=== PATIENT | male | born 1980 | race Hispanic/Latino ===

== ENCOUNTER 2017-09-25 08:41 | Emergency (ER) | payer BC ==
[2017-09-25 09:03] VITALS: BP 120/78; PULSE 81; TEMP 98; O2SAT 100
[2017-09-25 09:04] VITALS: BMI 22.3
--- NOTE | 2017-09-25 10:08 | ED PDOC ---
HPI: Trauma/Fall - HPI Time Seen by Provider: 09/25/17 09:24 Chief Complaint (Nursing): Trauma Chief Complaint (Provider): Fall History Per: Patient Onset/Duration Of Symptoms: Days (x1) Injury Occurred (Timing): Hours Ago: (11) Location Of Injury: Left: Leg (segura), Anterior: Leg Severity: Mild Pain Scale Rating Of: 4 Associated Symptoms: denies: Dizziness, LOC Additional Complaint(s): Timothy Anders is a 37 year old male, with a past medical history of asthma, who presents to the emergency department for a left leg injury associated with right upper shoulder pain s/p fall onset yesterday at 11pm. Patient states he slipped on water and fell down the stairs. He landed on his back and reports taking 3 pills of Advil this morning with no improvement of pain. He denies any numbness, tingling, head or neck injury. No further medical complaints. No dizziness. Ambulated with the pain. PMD: None provided. Past Medical History Reviewed: Historical Data, Nursing Documentation, Vital Signs Vital Signs: Last Vital Signs Temp 98 F 09/25/17 09:02 Pulse 81 09/25/17 09:02 Resp BP 120/78 09/25/17 09:02 Pulse Ox 100 09/25/17 10:22 - Medical History PMH: Asthma - Family History Family History: States: Unknown Family Hx - Social History Alcohol: None Drugs: Denies - Allergies Allergies/Adverse Reactions: Allergies Allergy/AdvReac Type Severity Reaction Status Date / Time No Known Allergies Allergy Verified 09/25/17 09:33 Review of Systems ROS Statement: Except As Marked, All Systems Reviewed And Found Negative Constitutional: Negative for: Other (no head injury) Musculoskeletal: Positive for: Shoulder Pain (right upper), Leg Pain (left segura laceration). Negative for: Neck Pain Neurological: Negative for: Numbness (or tingling) Physical Exam - Reviewed Nursing Documentation Reviewed: Yes Vital Signs Reviewed: Yes - Physical Exam Appears: Positive for: Non-toxic, No Acute Distress Head Exam: Positive for: ATRAUMATIC, NORMAL INSPECTION, NORMOCEPHALIC Skin: Positive for: Normal Color, Warm, Dry Eye Exam: Positive for: EOMI, Normal appearance, PERRL Neck: Positive for: Normal, Painless ROM, Supple Cardiovascular/Chest: Positive for: Regular Rate, Rhythm. Negative for: Murmur Respiratory: Positive for: Normal Breath Sounds. Negative for: Respiratory Distress Pulses-Dorsalis Pedis (L): 2+ Gastrointestinal/Abdominal: Positive for: Normal Exam, Bowel Sounds, Soft. Negative for: Tenderness, Guarding, Rebound Back: Negative for: Normal Inspection (right upper lateral back tenderness mild. Full ROM, no ecchymosis, no hematoma.), L CVA Tenderness, R CVA Tenderness Extremity: Positive for: Normal ROM (Full ROM), Tenderness, Other (Laceration on left anterior chin. Avulsed and jagged. Approximately 2.5 cm tender. Mild tender.). Negative for: Pedal Edema, Calf Tenderness Neurologic/Psych: Positive for: Alert, Oriented. Negative for: Motor/Sensory Deficits - ECG O2 Sat by Pulse Oximetry: 100 (RA) Pulse Ox Interpretation: Normal - Radiology X-Ray: Interpreted by Me, Viewed By Me X-Ray Interpretation: No Acute Disease - Progress ED Course And Treament: 1131: Stable. AAOx3. Pain free. Tolerated po. Laceration repaired. Come back in 7 days for suture removal. Medical Decision Making Medical Decision Making: Initial Impression: left leg injury s/p fall Initial Plan: --Adacel 0.5 ml IM --Tibia Fibula Left Fall Protocol [RAD] --reevaluation Scribe Attestation: Documented by Jose A Smith, acting as a scribe for Cristian Yip MD Provider Scribe Attestation: All medical record entries made by the Scribe were at my direction and personally dictated by me. I have reviewed the chart and agree that the record accurately reflects my personal performance of the history, physical exam, medical decision making, and the department course for this patient. I have also personally directed, reviewed, and agree with the discharge instructions and disposition. Disposition - Clinical Impression Clinical Impression: Leg injury, Laceration - Patient ED Disposition Is Patient to be Admitted: No - Disposition Referrals: [facility] [Outside] - 09/29/17 Disposition: Routine/Home Disposition Time: 11:36 Condition: STABLE Additional Instructions: Return if not better in 3 days. Come back or see your doctor in 7 days for suture removal. Instructions: Laceration (ED) Forms: [facility] (Swiss), [facility] ED School/Work Excuse
[2017-09-25] MEDS ORDERED: Povidone Iodine Topical 10% Sol ONE (10:45)
[2017-09-25] MEDS ORDERED: Lidocaine 1% Inj (20ml) IJ ONE (10:57)
[2017-09-25] MEDS ORDERED: Epinephrine /Lidocaine HCL 1:100,000/2% 30 ml INJ ONE ×2 (11:03→11:26)
[2017-09-25] MEDS ORDERED: Lidocaine 2% w Epi 1:100,000 Inj IJ ONE (11:05)
== END 2017-09-25 11:40 | disposition home or self-care (01) ==
LOC: H.ER 08:41
DX: S81.812A Laceration without foreign body, left lower leg, initial encounter (principal); W19.XXXA Unspecified fall, initial encounter; Y92.89 Other specified places as the place of occurrence of the external cause; J45.909 Unspecified asthma, uncomplicated

== ENCOUNTER 2017-10-10 14:21 | Emergency (ER) | payer OTHER, BC ==
[2017-10-10 14:21] VITALS: BMI 22.3
[2017-10-10 14:27] VITALS: BP 140/83; PULSE 92; RESP 18; TEMP 98.3; O2SAT 99
--- NOTE | 2017-10-10 15:07 | ED PDOC ---
HPI: Wound Care - HPI Time Seen by Provider: 10/10/17 14:39 Chief Complaint (Nursing): Suture/Staple Removal Chief Complaint (Provider): Suture removal History Per: Patient Exam Limitations: no limitations Onset/Duration Of Symptoms: Days (x10) Location Of Injury: Left: Leg (segura) Severity: None Pain Scale Rating Of: 0 Additional Complaint(s): Timothy Anders is a 37 year old male, with no past medical history, who presents to the emergency department for suture removal on left segura s/p fall injury onset 10 days ago. Patient had sutures done in the ED after he tripped and fell down the stairs 10 days ago. Some mild redness noted around the wound. Patient denies any fever, or chills. No further medical complaints. PMD: None provided. Past Medical History Reviewed: Historical Data, Nursing Documentation, Vital Signs Vital Signs: Last Vital Signs Temp 98.3 F 10/10/17 14:26 Pulse 92 H 10/10/17 14:26 Resp 18 10/10/17 14:26 BP 140/83 10/10/17 14:26 Pulse Ox 99 10/10/17 14:26 - Medical History PMH: Asthma - Family History Family History: States: Unknown Family Hx - Social History Current smoker - smoking cessation education provided: Yes Alcohol: Social Drugs: Denies - Home Medications Home Medications: Ambulatory Orders Medication Instructions Recorded Cephalexin [cephalexin] 500 mg PO BID #14 cap 10/10/17 - Allergies Allergies/Adverse Reactions: Allergies Allergy/AdvReac Type Severity Reaction Status Date / Time No Known Allergies Allergy Verified 09/25/17 09:33 Review of Systems ROS Statement: Except As Marked, All Systems Reviewed And Found Negative Constitutional: Negative for: Fever, Chills Musculoskeletal: Positive for: Leg Pain (left segura wound sutured with mild redness noted) Physical Exam - Reviewed Nursing Documentation Reviewed: Yes Vital Signs Reviewed: Yes - Physical Exam Appears: Positive for: Well, Non-toxic, No Acute Distress Head Exam: Positive for: ATRAUMATIC, NORMAL INSPECTION, NORMOCEPHALIC Skin: Positive for: Normal Color, Warm, Dry Eye Exam: Positive for: EOMI, Normal appearance, PERRL Neck: Positive for: Normal, Painless ROM, Supple Respiratory: Negative for: Respiratory Distress Extremity: Positive for: Normal ROM, Other (mid tibial shaft scabbed over site. 3 sutures noted. 2cm surrounding erythema. ) Neurologic/Psych: Positive for: Alert, Oriented - ECG O2 Sat by Pulse Oximetry: 99 (RA) Pulse Ox Interpretation: Normal Medical Decision Making Medical Decision Making: Initial Impression: Suture removal Initial Plan: - 3 sutures removed. Mild purulent drainage noted when sutures removed. ~ Scribe Attestation: Documented by Jose A Smith, acting as a scribe for Herminia Owen PA-C. Provider Scribe Attestation: All medical record entries made by the Scribe were at my direction and personally dictated by me. I have reviewed the chart and agree that the record accurately reflects my personal performance of the history, physical exam, medical decision making, and the department course for this patient. I have also personally directed, reviewed, and agree with the discharge instructions and disposition. Disposition - Clinical Impression Clinical Impression: Removal of suture, Visit for wound check - Patient ED Disposition Is Patient to be Admitted: No - Disposition Disposition: Routine/Home Disposition Time: 15:16 Condition: STABLE Prescriptions: Cephalexin [cephalexin] 500 mg PO BID #14 cap Instructions: Stitches Removal (ED) Forms: [employer] (Namibian)
== END 2017-10-10 15:03 | disposition home or self-care (01) ==
LOC: H.ER 14:21
DX: Z48.02 Encounter for removal of sutures (principal)

== ENCOUNTER 2017-10-24 18:48 | Emergency (ER) | payer OTHER, BC ==
[2017-10-24 18:48] VITALS: BMI 22.3
[2017-10-24 18:55] VITALS: BP 143/90; PULSE 82; RESP 18; TEMP 97.6; O2SAT 99
--- NOTE | 2017-10-24 19:22 | ED PDOC ---
Lower Extremity Pain/Injury Time Seen by Provider: 10/24/17 18:57 Chief Complaint (Nursing): Lower Extremity Problem/Injury Chief Complaint (Provider): open wound of leg History Per: Patient History/Exam Limitations: no limitations Current Symptoms Are (Timing): Still Present Additional Complaint(s): Patient presents to ED for evaluation of possible infection to wound on left leg. Patient states he sustained laceration to left leg one month ago and wound was sutured. He has noticed over the past few days that wound is more red and has purulent discharge. Patient denies fever or chills. Past Medical History Reviewed: Historical Data, Nursing Documentation, Vital Signs Vital Signs: Last Vital Signs Temp 97.6 F 10/24/17 18:53 Pulse 82 10/24/17 18:53 Resp 18 10/24/17 18:53 BP 143/90 10/24/17 18:53 Pulse Ox 99 10/24/17 18:53 - Medical History PMH: Asthma - Surgical History Surgical History: No Surg Hx - Family History Family History: States: No Known Family Hx - Living Arrangements Living Arrangements: With Family - Social History Current smoker - smoking cessation education provided: Yes Alcohol: Social Drugs: Denies - Immunization History Hx Tetanus Toxoid Vaccination: Yes - Home Medications Home Medications: Ambulatory Orders Medication Instructions Recorded Cephalexin [cephalexin] 500 mg PO BID #14 cap 10/10/17 Clindamycin [Cleocin] 300 mg PO QID #28 cap 10/24/17 - Allergies Allergies/Adverse Reactions: Allergies Allergy/AdvReac Type Severity Reaction Status Date / Time No Known Allergies Allergy Verified 10/24/17 18:53 Wells Criteria for PE - Wells Criteria for Pulmonary Embolism Clinical Signs and Symptoms of DVT: No P.E is #1 Diagnosis, or Equally Likely: No Heart Rate >100: No Immobilization at least 3 days;Surgery previous 4 weeks: No Previous, objectively diagnosed PE or DVT: No Hemoptysis: No Malignancy w/treatment within 6 months, or palliative: No Total Score: 0 Review of Systems ROS Statement: Except As Marked, All Systems Reviewed And Found Negative (As per HPI, otherwise negative) Constitutional: Negative for: Fever, Chills Musculoskeletal: Positive for: Other (wound on left leg) Physical Exam - Reviewed Nursing Documentation Reviewed: Yes Vital Signs Reviewed: Yes - Physical Exam Appears: Positive for: Well, Non-toxic, No Acute Distress Skin: Positive for: Normal Color. Negative for: Rash Eye Exam: Positive for: Normal appearance Extremity: Positive for: Other (3cm x 2cm open wound to the left segura with purulent discharge and localized erythema, no erythematous streaking, normal sensation surrounding wound). Negative for: Calf Tenderness Neurologic/Psych: Positive for: Alert, Oriented - ECG O2 Sat by Pulse Oximetry: 99 (RA) Pulse Ox Interpretation: Normal Medical Decision Making Medical Decision Making: Time: 19:15 Initial Impression: 37 y/o male with infected wound Plan: Wound culture Time: 19:20 Patient was given instructions for wound care and will be discharged home with rx clindamycin. Scribe Attestation: Documented by Teddy Bauer acting as a scribe for Herminia Oconnor MD. Scribe Attestation: All medical record entries made by the Scribe were at my direction and personally dictated by me. I have reviewed the chart and agree that the record accurately reflects my personal performance of the history, physical exam, medical decision making, and the department course for this patient. I have also personally directed, reviewed, and agree with the discharge instructions and disposition. Disposition - Clinical Impression Clinical Impression: Wound infection - Patient ED Disposition Is Patient to be Admitted: No Counseled Patient/Family Regarding: Diagnosis, Need For Followup, Rx Given - Disposition Referrals: [facility] [Outside] Disposition: Routine/Home Disposition Time: 19:30 Condition: STABLE Additional Instructions: WASH WOUND DAILY WITH SOAP AND WATER. DO NOT APPLY ANY TOPICAL CREAMS OR OINTMENTS. AIR WOUND OUT FOR SEVERAL HOURS PER DAY. TAKE ANTIBIOTICS DIRECTED TO COMPLETION. HAVE WOUND RE-EVALUATED IN 2-3 DAYS. Prescriptions: Clindamycin [Cleocin] 300 mg PO QID #28 cap Instructions: Wound Infection (ED) Forms: [employer] (Greek)
== END 2017-10-24 19:52 | disposition home or self-care (01) ==
LOC: H.ER 18:48
DX: T81.4XXA Infection following a procedure, initial encounter (principal)